=== PATIENT | male | born 1990 | race Caucasian/White ===

== ENCOUNTER 2019-08-05 14:24 | Emergency (ER) | payer OTHER ==
[2019-08-05] MEDS ORDERED: Acetaminophen/oxyCODONE 325-5 MG Tab PO ONE (15:16)
--- NOTE | 2019-08-05 16:26 | CR ---
Chest and right ribs: Frontal view of the chest was obtained as well as 2 views of the right ribs. Comparison: No prior chest or rib exam. Heart size and mediastinum are normal. Lungs are clear. No discrete fracture or other bony abnormality is seen. Impression: 1. Nothing acute is seen on frontal chest x-ray. 2. No discrete right-sided rib abnormality is appreciated. Diagnostic code #1 This report was dictated in [place] Standard Time
--- NOTE | 2019-08-05 16:28 | CR ---
Right wrist: 3 views of the right wrist were obtained. Comparison: No previous study. Ununited old fracture within the ulnar styloid process is noted. Joint spaces are preserved. No acute fracture or other abnormality is appreciated. Impression: 1. Old ununited avulsion fracture within the ulnar styloid process. 2. Nothing acute is appreciated on 3 view right wrist exam. Diagnostic code #2 This report was dictated in [place] Standard Time
--- NOTE | 2019-08-05 16:28 | CR ---
Right femur: AP and lateral views of the right femur were obtained. No fracture or other bony abnormality is seen. Impression: 1. No abnormality is appreciated on 2 view right femur exam. Diagnostic code #1 This report was dictated in [place] Standard Time
--- NOTE | 2019-08-05 16:28 | CR ---
Right forearm: 2 views of the right forearm were obtained. Comparison: No prior forearm study. Findings: Nondisplaced radial neck fracture appears to be present. Old ununited fracture is seen within the ulnar styloid process. No additional abnormality is appreciated. Impression: 1. Nondisplaced radial neck fracture is felt to be present. 2. Other findings as noted above. 3. No other acute bony finding is seen. Diagnostic code #3 This report was dictated in [place] Standard Time
--- NOTE | 2019-08-05 16:55 | EDM.PDOC ---
ED HPI GENERAL MEDICAL PROBLEM - General Chief Complaint: Trauma Stated Complaint: HEAD INJURY Time Seen by Provider: 08/05/19 14:49 Right arm Pain Score (Numeric/FACES): 7 - Related Data Allergies Allergy/AdvReac Type Severity Reaction Status Date / Time Sulfa (Sulfonamide Allergy Intermediate Other Verified 08/05/19 15:20 Antibiotics) Home Meds: Home Meds Escitalopram Oxalate [Lexapro] 10 mg PO DAILY 08/05/19 [History] Past Medical History HEENT History: Reports: None Cardiovascular History: Reports: None Respiratory History: Reports: None Gastrointestinal History: Reports: None Genitourinary History: Reports: None Musculoskeletal History: Reports: None Neurological History: Reports: None Psychiatric History: Reports: None Endocrine/Metabolic History: Reports: None Hematologic History: Reports: None Immunologic History: Reports: None Oncologic (Cancer) History: Reports: None Dermatologic History: Reports: None - Infectious Disease History Infectious Disease History: Reports: Chicken Pox - Past Surgical History Head Surgeries/Procedures: Reports: None HEENT Surgical History: Reports: Adenoidectomy, Tonsillectomy Cardiovascular Surgical History: Reports: None Respiratory Surgical History: Reports: None GI Surgical History: Reports: None Male Surgical History: Reports: None Endocrine Surgical History: Reports: None Neurological Surgical History: Reports: None Musculoskeletal Surgical History: Reports: Other (See Below) Oncologic Surgical History: Reports: None Dermatological Surgical History: Reports: None Social & Family History - Family History Family Medical History: Noncontributory - Tobacco Use Smoking Status *Q: Never Smoker Second Hand Smoke Exposure: No - Caffeine Use Caffeine Use: Reports: None - Recreational Drug Use Recreational Drug Use: No Course - Vital Signs Last Recorded V/S: Last Vital Signs Temp 96.7 F L 08/05/19 14:30 Pulse 72 08/05/19 16:45 Resp 15 08/05/19 16:45 BP 98/61 08/05/19 16:45 Pulse Ox 96 08/05/19 16:45 - Orders/Labs/Meds Orders: Active Orders 24 hr Category Date Time Status DME for Discharge [COMM] Stat Oth 08/05/19 16:54 Ordered Meds: Medications Discontinued Medications Generic Name Dose Route Start Last Admin Trade Name Freq PRN Reason Stop Dose Admin Oxycodone/Acetaminophen 1 tab 08/05/19 15:16 08/05/19 15:22 Percocet 325-5 Mg PO 08/05/19 15:17 1 tab ONETIME ONE Administration Departure - Departure Time of Disposition: 16:54 - Discharge Information Referrals: PCP,None [Primary Care Provider] - Sepsis Event Note - Evaluation Sepsis Screening Result: No Definite Risk - Focused Exam Vital Signs: Vital Signs Temp Temp Pulse Resp BP Pulse Ox 08/05/19 16:45 72 15 98/61 96 08/05/19 16:14 80 18 113/71 95 08/05/19 15:00 73 15 112/72 97 08/05/19 14:45 84 14 124/83 96 08/05/19 14:30 96.7 F L 96.7 F L 87 16 130/66 99 08/05/19 14:27 96.8 F L 87 130/66 95 Date Exam was Performed: 08/05/19 Time Exam was Performed: 16:54 - My Orders Last 24 Hours: My Active Orders 08/05/19 16:54 DME for Discharge [COMM] Stat - Assessment/Plan Last 24 Hours: My Active Orders 08/05/19 16:54 DME for Discharge [COMM] Stat
--- NOTE | 2019-08-05 16:58 | EDM.PDOC ---
ED HPI GENERAL MEDICAL PROBLEM - General Chief Complaint: Trauma Stated Complaint: HEAD INJURY Time Seen by Provider: 08/05/19 14:49 - History of Present Illness INITIAL COMMENTS - FREE TEXT/NARRATIVE: 29 y/o male no medical problems presenting to ED for a fall. Patient was on a 13 foot ladder then the ladder slid down onto the floor. he hit his head, but suffered no LOC, has no headache, no vomiting. denied neck trauma. hit his right forearm, right chest and right thigh. denies sob, denies abd pain, denied weakness or numbness. was ambulatory after scene, able to walk. Right arm Pain Score (Numeric/FACES): 7 - Related Data Allergies Allergy/AdvReac Type Severity Reaction Status Date / Time Sulfa (Sulfonamide Allergy Intermediate Other Verified 08/05/19 15:20 Antibiotics) Home Meds: Home Meds Escitalopram Oxalate [Lexapro] 10 mg PO DAILY 08/05/19 [History] Past Medical History HEENT History: Reports: None Cardiovascular History: Reports: None Respiratory History: Reports: None Gastrointestinal History: Reports: None Genitourinary History: Reports: None Musculoskeletal History: Reports: None Neurological History: Reports: None Psychiatric History: Reports: None Endocrine/Metabolic History: Reports: None Hematologic History: Reports: None Immunologic History: Reports: None Oncologic (Cancer) History: Reports: None Dermatologic History: Reports: None - Infectious Disease History Infectious Disease History: Reports: Chicken Pox - Past Surgical History Head Surgeries/Procedures: Reports: None HEENT Surgical History: Reports: Adenoidectomy, Tonsillectomy Cardiovascular Surgical History: Reports: None Respiratory Surgical History: Reports: None GI Surgical History: Reports: None Male Surgical History: Reports: None Endocrine Surgical History: Reports: None Neurological Surgical History: Reports: None Musculoskeletal Surgical History: Reports: Other (See Below) Oncologic Surgical History: Reports: None Dermatological Surgical History: Reports: None Social & Family History - Family History Family Medical History: Noncontributory - Tobacco Use Smoking Status *Q: Never Smoker Second Hand Smoke Exposure: No - Caffeine Use Caffeine Use: Reports: None - Recreational Drug Use Recreational Drug Use: No Review of Systems - Review of Systems Review Of Systems: Comprehensive ROS is negative, except as noted in HPI. ED EXAM, GENERAL - Physical Exam Exam: See Below Free Text/Narrative:: superficial abrasion in the forehead and bridge of the nose. no nose bleeding. no ttp along the facial bones, full ROM in the mandible, no C, T, L spine ttp. No TTP in the shoulders b/l, no ttp in the elbows b/l, mild ttp in the proximal radial/ulnar area. no ttp in th LUE. patient was able to range both elbows, the wirsts, make a fist. mild ttp in right chest wall, no crepitus. abd was soft, nontedner non distended. ttp. no echymosis noted in the skin throughout. no ttp in the lower extremities. Strength and sesnation was 5/5 in the upper and lower extremities. Exam Limited By: No Limitations General Appearance: Alert, WD/WN, No Apparent Distress Eye Exam: Bilateral Eye: EOMI Ears: Normal External Exam Nose: Normal Inspection Head: Other (superficial abrasion in the forehead ) Respiratory/Chest: No Respiratory Distress, Lungs Clear, Normal Breath Sounds, No Accessory Muscle Use Cardiovascular: Normal Peripheral Pulses, Regular Rate, Rhythm, No Gallop, No Murmur, No Rub GI/Abdominal: Soft, Non-Tender, No Distention, Other (no signs of trauma ). No : Guarding, Rigid, Rebound, Tender (Male) Exam: Deferred Rectal (Males) Exam: Deferred Back Exam: Normal Inspection, Full Range of Motion. No: CVA Tenderness (L), CVA Tenderness (R), Decreased Range of Motion, Paraspinal Tenderness, Vertebral Tenderness Extremities: Normal Inspection, Normal Range of Motion, Normal Capillary Refill Neurological: Alert, Oriented, CN II-XII Intact, Normal Cognition, Normal Gait. No: No Motor/Sensory Deficits, Confused, Disoriented, Abnormal Gait, Abnormal Reflexes Psychiatric: Normal Affect Skin Exam: No: Ecchymosis Course - Vital Signs Last Recorded V/S: Last Vital Signs Temp 96.7 F L 08/05/19 14:30 Pulse 72 08/05/19 17:09 Resp 15 08/05/19 17:09 BP 110/53 L 08/05/19 17:09 Pulse Ox 98 08/05/19 17:09 - Orders/Labs/Meds Orders: Active Orders 24 hr Category Date Time Status DME for Discharge [COMM] Stat Oth 08/05/19 16:54 Ordered Meds: Medications Discontinued Medications Generic Name Dose Route Start Last Admin Trade Name Freq PRN Reason Stop Dose Admin Oxycodone/Acetaminophen 1 tab 08/05/19 15:16 08/05/19 15:22 Percocet 325-5 Mg PO 08/05/19 15:17 1 tab ONETIME ONE Administration - Re-Assessments/Exams Free Text/Narrative Re-Assessment/Exam: 08/05/19 20:19 no headahce, no vomiting, no LOC. it was not a direct fall from 13 feet, the ladder sort of slid down, making the mechanism slightly less concerning. I explained to the patient the signs and symptoms related to intracranial injury and he agreed that CTH was unessesary. Given the lack of headache, LOC and vomiting, a head ct in my opinion would be more harm than good. Nexus C spine clear HD stable no major fractures noted we monitored the patient for development of new symptoms, and monitored his vitals, no changes. he denied headche, vomiting, weakness or numbness prior to discharge. non displaced radial head fracture noted, placed on posterior splint by the nurse. extremity with intact pefusion, strength and sensation in the distal extremity. return precautions were discussed at length with the patient. 08/05/19 20:24 Departure - Departure Time of Disposition: 17:30 Disposition: Home, Self-Care 01 Clinical Impression: Radial fracture, Head trauma - Discharge Information Instructions: Concussion, Adult, [id number], Forearm Fracture, [id number] Referrals: PCP,None [Primary Care Provider] - Forms: ED Department Discharge Additional Instructions: The following information is given to patients seen in the emergency department who are being discharged to home. This information is to outline your options for follow-up care. We provide all patients seen in our emergency department with a follow-up referral. The need for follow-up, as well as the timing and circumstances, are variable depending upon the specifics of your emergency department visit. If you don't have a primary care physician on staff, we will provide you with a referral. We always advise you to contact your personal physician following an emergency department visit to inform them of the circumstance of the visit and for follow-up with them and/or the need for any referrals to a consulting specialist. The emergency department will also refer you to a specialist when appropriate. This referral assures that you have the opportunity for follow-up care with a specialist. All of these measure are taken in an effort to provide you with optimal care, which includes your follow-up. Under all circumstances we always encourage you to contact your private physician who remains a resource for coordinating your care. When calling for follow-up care, please make the office aware that this follow-up is from your recent emergency room visit. If for any reason you are refused follow-up, please contact the [facility] Emergency Department at and asked to speak to the emergency department charge nurse. [facility] [address] [place] [id number] [address] [facility] [address] [place] [address], [address] [place] [address] Sepsis Event Note - Evaluation Sepsis Screening Result: No Definite Risk - Focused Exam Vital Signs: Vital Signs Temp Temp Pulse Resp BP Pulse Ox 08/05/19 17:09 72 15 110/53 L 98 08/05/19 16:45 72 15 98/61 96 08/05/19 16:14 80 18 113/71 95 08/05/19 15:00 73 15 112/72 97 08/05/19 14:45 84 14 124/83 96 08/05/19 14:30 96.7 F L 96.7 F L 87 16 130/66 99 08/05/19 14:27 96.8 F L 87 130/66 95 Date Exam was Performed: 08/05/19 Time Exam was Performed: 20:09
== END 2019-08-05 17:10 | disposition home or self-care (01) ==
LOC: MW.ED 14:24
DX: S52.124A Nondisplaced fracture of head of right radius, initial encounter for closed fracture (principal); S00.81XA Abrasion of other part of head, initial encounter; Z88.2 Allergy status to sulfonamides; W11.XXXA Fall on and from ladder, initial encounter
CPT/HCPCS: 29105; 71101; 73090; 73110; 73552; 99284; A9270